=== PATIENT | female | born 1965 | race Caucasian/White ===

== ENCOUNTER 2016-12-11 07:05 | Inpatient (IN) | payer MEDICARE ==
[~2016-12-11] VITALS: Ht 162.6 cm; Wt 138.0 kg
[2016-12-11] VITALS (11 sets, daily range): BP systolic 91–140; BP diastolic 39–86; PULSE 86–109; RESP 15–23; O2SAT 96–100
--- NOTE | 2016-12-11 06:56 | ED.REPORT ---
HPI-General Illness Date of Service Dec 11, 2016 ED Provider: The patient is a 61 year old female with history of diabetes mellitus, COPD, hypertension, high cholesterol, GERD, chronic back pain, and fibromyalgia, who was brought to the emergency department by EMS for decreased LOC. Medics were originally called for generalized weakness and falls. When they arrived they found the patient on the floor. Initially they were unable to get a blood pressure or radial pulse but she was responsive to painful stimuli. Once they were able to get her to lay flat and move her onto the stretcher they were able to get blood pressures that were in the 70s and 80s systolic. En route to the ED the patient's pressure improved with IVF and she was more responsive. The patient has had diarrhea over the last 2 weeks with increasing weakness. Her sugars have been elevated over the last 2 days. This morning she felt more weak and had 2-3 falls at home. She did not hit her head. She does report twisting her left ankle during one of the falls. She denies vomiting, bloody stools, abdominal pain, dysuria, fever, chills, cough or runny nose. Nursing Notes Stated Complaint: DECREASE LOC Nursing Notes Reviewed: Yes Allergies: Coded Allergies: metformin (Verified Allergy, Mild, 12/11/16) morphine (Verified Allergy, Mild, 12/11/16) Sulfa (Sulfonamide Antibiotics) (Unverified Allergy, Unknown, 12/11/16) Uncoded Allergies: SULFA (Allergy, Mild, 12/11/16) Scheduled Cholecalciferol (Vitamin D3) (Vitamin D3) 1,000 Unit Tab.chew 1,000 UNIT PO DAILY Citalopram (Citalopram) 20 Mg Tablet 60 MG PO DAILY Gabapentin (Gabapentin) 800 Mg Tablet 800 MG PO TID Levothyroxine (Levothyroxine) 25 Mcg Tablet 25 MCG PO DAILY Lisinopril (Lisinopril) 30 Mg Tablet 30 MG PO DAILY Vanduser Carbonate (Vanduser Carbonate) 300 Mg Tablet.er 300 MG PO MORNING Vanduser Carbonate (Vanduser Carbonate) 300 Mg Tablet.er 600 MG PO Evening Melatonin (Melatonin) 5 Mg Tab.ir.er 5 MG PO HS Meloxicam (Meloxicam) 15 Mg Tablet 15 MG PO DAILY Mirtazapine (Mirtazapine) 15 Mg Tablet 15 MG PO HS Multivitamin (Multivitamins) 1 Each Capsule 1 EACH PO DAILY Omeprazole (Omeprazole) 40 Mg Capsule.dr 40 MG PO BID Potassium Gluconate (Potassium) 99 Mg Tablet 99 MG PO DAILY Prazosin (Prazosin) 1 Mg Capsule 1 MG PO HS Rosuvastatin Calcium (Rosuvastatin Calcium) 20 Mg Tablet 20 MG PO DAILY Trazodone (Trazodone) 50 Mg Tablet 50 MG PO HS When not taking Mirtazapine Scheduled PRN Methocarbamol (Methocarbamol) 750 Mg Tablet 750 MG PO BID PRN PRN For Spasm General Time Seen by MD: 07:07 Chief Complaint Other (Decreased LOC) Hx Obtained From: Patient, Spouse, EMS Arrived By: Ambulance Sudden in Onset?: Yes Onset Occurred: 1 - 4 hours ago Symptom Duration: Since onset Location: : Ankle left Quality: Painful Severity: Current: Mild Severity: Maximum: Mild Recent Healthcare: No recent hospitalization Similar Sx Previous: No Past Medical History Past Medical History Fibromyalgia Chronic back pain Hypothyroidism High cholesterol Hypertension GERD Bipolar Depression Reports: COPD, Diabetes mellitus Past Surgical History Reports: Cholecystectomy Family History Noncontributory Smoking History Never Smoker Social History Alcohol Use: Denies alcohol use Drug Use: Denies drug use Other Social History: Good social support, , Local resident Ambulatory Status Independent Review of Systems Full Review of Systems Constitutional: Reports: Weakness - generalized, Denies: Chills, Fever Ears / Nose / Throat: Denies: Nasal congestion Respiratory: Denies: Non-productive cough GI: Reports: Diarrhea, Denies: Abdominal pain, Bloody/tarry stool, Hematochezia, Vomiting Neurologic: Reports: Change LOC, Weakness Complete sys rev & neg: except as marked. Physical Exam Vital Signs Vital Signs Date Time Temp Pulse Resp B/P Pulse Ox O2 Delivery O2 Flow Rate FiO2 12/11/16 08:34 99 15 91/44 97 Nasal Cannula 2 12/11/16 08:12 97 17 97/49 98 Room Air 12/11/16 07:58 101 21 92/39 100 12/11/16 07:34 107 23 91/43 100 12/11/16 07:26 109 15 104/50 100 Room Air 12/11/16 07:10 36.7 103 17 101/41 100 Room Air Initial VS: Reviewed, Vital signs abnormal Head / Eyes: Atraumatic, Normocephalic, PERRL ENT: Mucous membranes moist, Conjunctiva normal, No scleral icterus Neck: Supple, Non-tender, Full range of motion Extremities: Vascular intact, Neuro intact Skin: Warm, Dry, No cyanosis Neurologic: Alert, Oriented, Nonfocal Psychiatric: Mood/affect normal, Behavior normal, Normal thought content General/Constitutional: Awake, Alert Appearance / Presentation: Positive: Obese, morbidly Disheveled, malodorous Respiratory / Chest: Atraumatic, Breath sounds NL, Breath sounds = bilat, No respiratory distress, No rales, No rhonchi, No wheezing Cardiovascular: Regular rhythm, Heart sounds NL, No gallop, No murmurs, No rubs Heart Rate / Rhythm: Positive: Tachycardia Abdomen: Soft, Non-tender, No guarding, No rebound, BS normoactive, No distention, No hernia, No palpable mass, No pulsatile mass Obese but no focal tenderness Lower Extremity / Pelvis / MS: Neurologic intact, Vascular intact, No edema Ankle / Foot: Neurologic intact, Vascular intact Swelling to the left lateral malleolus. Interpretation & Diagnostics Lab Results Interpretation Result Diagram: 12/11/16 0720 12/11/16 0720 Test 12/11/16 07:10 12/11/16 07:20 12/11/16 08:25 Vanduser Level 1.3mEq/L (0.5-1.5) White Blood Count 20.0th/mm3 (3.8-10.1) Red Blood Count 4.50mil/mm3 (3.90-5.20) Hemoglobin 12.9g/dL (12.0-15.6) Hematocrit 38.3% (35.0-46.0) Mean Corpuscular Volume 85.1fL (81-100) Mean Corpuscular Hemoglobin 28.7pg (27.0-35.0) Mean Corpuscular Hemoglobin Concent 33.7% (32.0-37.0) Red Cell Distribution Width 12.5% (12.3-15.4) Platelet Count 452bil/L (150-400) Neutrophils (%) (Auto) 61.5% (40-74) Lymphocytes (%) (Auto) 27.3% (14-46) Monocytes (%) (Auto) 7.6% (4-12) Eosinophils (%) (Auto) 2.9% (0-5) Basophils (%) (Auto) 0.3% (0-3) Sodium Level 134mEq/L (134-144) Potassium Level 3.3mEq/L (3.5-5.2) Chloride Level 94mEq/L (97-108) Carbon Dioxide Level 21mmol/L (18-29) Blood Urea Nitrogen 20mg/dL (6-24) Creatinine 1.53mg/dL (0.57-1.00) Estimat Glomerular Filtration Rate 50mL/min (>59) Glucose Level 298mg/dL (60-99) Calcium Level 9.5mg/dL (8.5-10.1) Magnesium Level 2.1mg/dL (1.6-2.6) Total Bilirubin 0.2mg/dL (0.0-1.2) Aspartate Amino Transf (AST/SGOT) 32U/L (0-50) Alanine Aminotransferase (ALT/SGPT) 30U/L (0-32) Alkaline Phosphatase 90U/L (25-165) Troponin T < 0.010ug/L (0.0-0.011) Total Protein 7.4g/dL (6.4-8.4) Albumin 3.9g/dL (3.4-5.0) Procalcitonin 0.18ng/mL (0.00-0.08) Ketones Negative (Negative) Urine Color Straw (YELLOW) Urine Appearance Clear (CLEAR,HAZY) Urine pH 5.5 (5.0-8.0) Urine Specific Moodus 1.010 (1.003-1.035) Urine Protein Negativemg/dL (NEG,TRACE) Urine Glucose (UA) >1000mg/dL (NEGATIVE) Urine Ketones Negativemg/dL (NEGATIVE) Urine Occult Blood Moderate (NEGATIVE) Urine Nitrite Negative (NEGATIVE) Urine Bilirubin Negative (NEGATIVE) Urine Urobilinogen Normalmg/dL (NORMAL) Urine Leukocyte Esterase Negative (NEGATIVE) Urine RBC 0-2/hpf (0-2) Urine WBC 0-5/hpf (0-5) Urine Epithelial Cells None/hpf (NONE-MOD) Urine Crystals None seen (NONE SEEN) Urine Bacteria None/hpf (NONE-FEW) Urine Hyaline Casts None/lpf (NONE) Urine Granular Casts None seen (NONE SEEN) Urine Waxy Casts None seen (NONE SEEN) Urine Red Blood Cell Casts None seen (NONE SEEN) Urine White Blood Cell Casts None seen (NONE SEEN) Urine Mucus None seen (None Seen) Urine Trichomonas None seen (NONE SEEN) Urine Yeast None (NONE SEEN) Urinalysis Comment None Urine Culture Reflexed Not indicated ECG Interpretation ECG Interpretation: Sinus tachycardia Prolonged QT Time: 07:57 Interpreted by: ED physician X-Ray Chest Interpretation Chest Xray Interpretation: IMPRESSION: No acute cardiopulmonary disease. Dictated by: Terry FLORES Interpreted: Renee Mcclellan MD on 12/11/2016 at 8:58 Interpretation / Wet Read by: Interpret - Radiologist X-Ray Interpretation Xray Interpretation: L ankle IMPRESSION: Multiple bony fragments adjacent to the tip of the medial and lateral malleolus suspicious for avulsion fracture fragments and there is asymmetry of the ankle mortise. If indicated MRI or CT could be performed for further assessment. Dictated by: Terry FLORES Interpreted: Renee Mcclellan MD on 12/11/2016 at 8:58 X-Ray Ordered: Ankle left Interpretation / Wet Read by: Interpret - Radiologist Procedures Central Line Placement Time: 10:29 Procedure Performed by: ED physician Consent / Setup / Site Prep: Informed consent provided, Consent from patient , Time-out performed, Oxygen administered, Pulse oximeter applied, engine monitor applied, Hand hygiene observed, Standard surgical scrub, Max barrier precaution, Sterile drapes applied, Position Trendelenburg Skin Preparation Agent: Hibiclens - Chlorhexidine Local Anesthesia: Lidocaine 1% Side / Location / Ultrasound: Internal jugular right, Ultrasound assisted Catheter / Lumen / Technique: Triple lumen, Good blood return, Secured w catheter device Post-Procedure / Complications: Antibiotic oint applied, Dressing placed, CXR neg for pneumothorax, Condition improved, Tolerated procedure well, Patient stable, Not stable post-procedure Re-Eval/Medical Decision Med Decision/Clinical Course Persistent hypotension despite aggressive IV fluid bolus, potential source of infection is the diarrhea, the patient is not having significant pain outside of her left ankle which seems to be a high-grade sprain. Central venous catheter was placed due to persistent hypotension. Patient is initiated on vancomycin, Zosyn, norepinephrine also initiated in the ER. Patient will be admitted. Bolused 4.5 L IVF Source of Hx: Old records, EMS, Family Time of Eval: 07:45 Re-Evaluation/Progress Note: Rechecked the patient. Time of Eval: 08:06 Re-Evaluation/Progress Note: Rechecked the patient. Discussed plan for admission. All questions were addressed. Consultation : Referral / Consult Name: Jules Reina MD Consulted With: Hospitalist Requested Call at: 09:16 Call Returned at: 09:28 Welder Fitter Arc: Will see patient, Agrees with eval, Agrees with plan, Accepts admit Counseled Regarding: Diagnosis, Lab results, Need for admission Discharge & Departure Primary Impression: Sepsis Sepsis type: sepsis due to unspecified organism Qualified Code: A41.9 - Sepsis, unspecified organism Additional Impressions: Diarrhea Diarrhea type: unspecified type Qualified Code: R19.7 - Diarrhea, unspecified Left ankle sprain Encounter type: initial encounter Involved ligament of ankle: unspecified ligament Qualified Code: S93.402A - Sprain of unspecified ligament of left ankle, initial encounter Disposition: ADMITTED TO HOSPITAL Discharge Condition All VS Reviewed: Yes Condition: Stable Crit Care Except Billable Proc Time Spent: 75-104 minutes Services Performed: Patient management by me, Time spent at bedside, Reviewing test results Critical Care Notes: SEE MDM Scribe Attestation Portions of this note were transcribed by Shahnaz Pereira. I, Dr. Pantoja personally performed the history, physical exam and medical decision-making; I reviewed and confirmed the accuracy of the information in the transcribed note. Signed by: Brittney Chen, 12/11/2016 at 1100. Rigoberto Pantoja DO Dec 11, 2016 06:56 Shahnaz Pereira Dec 11, 2016 06:59
[~2016-12-11 07:05] MED LIST: ALBU8.5H2 INHALATION; ATOR80TA PO; BECL8.7A6 IH; CITA20TA11 PO; DIPH50C PO; GABA800T2 PO; GLIM2TAB2 PO; INSU100C8 SUBQ; INSU100V7 SUBQ; LEVO25TA5 PO; LISI30TA5 PO; LURA40TA3 PO; MELA1TAB21 PO; MELO-253 PO; METH750T3 PO; MIRT15TA6 PO; MISO200T4 PO; NYST1POW23 MC; OMEP40CA36 PO; RANI150C4 PO
[2016-12-11] MEDS ORDERED: 0.9% Sodium Chloride 1,000 ML IV ONE ×3 (07:15→08:05)
[2016-12-11 07:25] LABS: BASOPHILS % (AUTO) 0.3 % (0-3); EOSINOPHILS % (AUTO) 2.9 % (0-5); MONOCYTES % (AUTO) 7.6 % (4-12); Mean Corpuscular Hemoglobin 28.7 pg (27.0-35.0); Mean Corpuscular Volume 85.1 fL (81-100); NEUTROPHILS % (AUTO) 61.5 % (40-74); Platelet Count 452 bil/L (150-400)
[2016-12-11 07:59] LABS: TROPONIN T < 0.010 ug/L (0.0-0.011)
[2016-12-11 08:04] LABS: Magnesium 2.1 mg/dL (1.6-2.6)
[2016-12-11] MEDS: 0.9% Sodium Chloride 1,000 ML IV SCH ×5 (08:29→19:20)
[2016-12-11] MEDS ORDERED: Vancomycin Dose per Pharmacist XX ONE (08:30)
[2016-12-11] MEDS ORDERED: Piperacillin-Tazo 3.375 Gm Inj 3.375 GM in Dextrose 5% Minibag Plus 50 ML IV ONE (08:55)
[2016-12-11 08:57] LABS: APPEARANCE,URINE CLEAR (CLEAR,HAZY); COLOR,URINE STRAW (YELLOW); PH,URINE 5.5 (5.0-8.0)
[2016-12-11 08:58] LABS: OCCULT BLOOD,URINE MODERATE (NEGATIVE); UROBILINOGEN,URINE NORMAL (NORMAL)
--- NOTE | 2016-12-11 08:59 | DRSVH ---
PROCEDURE: X-RAY CHEST ONE VIEW, PORTABLE ([id number]) INDICATIONS: hypotension, TECHNIQUE: One view of the chest was acquired. COMPARISON: None. FINDINGS: Surgical changes and devices: None. Lungs and pleura: No pleural effusions or pneumothorax. Lungs are clear. Lung volumes are low. Mediastinum: Mediastinal contours appear normal. Heart size is normal. Bones and chest wall: No suspicious bony lesions. Overlying soft tissues appear unremarkable. IMPRESSION: No acute cardiopulmonary disease. Dictated by: Terry Dominguez [facility] Interpreted: Renee Mcclellan MD on 12/11/2016 at 8:58 Transcribed by: ARUN on 12/11/2016 at 8:58 Approved by: Renee Mcclellan MD, PhD on 12/11/2016 at 9:46
--- NOTE | 2016-12-11 09:01 | DRSVH ---
PROCEDURE: X-RAY LEFT ANKLE, MINIMUM THREE VIEWS ([id number]) INDICATIONS: ankle pain post fall TECHNIQUE: 3 views of the ankle were acquired. COMPARISON: None. FINDINGS: Bones: Multiple bony fragments are seen adjacent to both the tip of the medial lateral malleolus and there is asymmetry of ankle mortise. Prominent calcaneal spurring noted. Soft tissues: No tibiotalar joint effusion. Achilles tendon appears normal. IMPRESSION: Multiple bony fragments adjacent to the tip of the medial and lateral malleolus suspiciou s for avulsion fracture fragments and there is asymmetry of the ankle mortise. If indicated MRI or C T could be performed for further assessment. Dictated by: Terry Dominguez [facility] Interpreted: Renee Mcclellan MD on 12/11/2016 at 8:58 Transcribed by: ARUN on 12/11/2016 at 9:00 Approved by: Renee Mcclellan MD, PhD on 12/11/2016 at 9:46
[2016-12-11] MEDS ORDERED: Vancomycin Inj 2,000 MG in 0.9% Sodium Chloride 500 ML IV ONE (09:05)
[2016-12-11] MEDS ORDERED: Sodium Chloride LOK Flush 10 mL Syringe IVFLUSH PRN ×4 (09:15→11:30)
[2016-12-11] MEDS ORDERED: Alum-Mag Hydrox-Simeth 30 mL Suspension PO PRN (09:30)
[2016-12-11] MEDS ORDERED: Ondansetron 2 mg/mL 2 mL Inj IVPUSH PRN (09:30)
[2016-12-11] MEDS ORDERED: LEVO25TA5 PO (09:41)
[2016-12-11] MEDS ORDERED: ROSU20TA27 PO (09:41)
[2016-12-11] MEDS ORDERED: POTA99TA21 PO (09:41)
[2016-12-11] MEDS ORDERED: TRAZ-115 PO (09:41)
[2016-12-11] MEDS ORDERED: PRAZ1CAP2 PO (09:41)
[2016-12-11] MEDS ORDERED: OMEP40CA36 PO (09:41)
[2016-12-11] MEDS ORDERED: CHOL10008 PO (09:41)
[2016-12-11] MEDS ORDERED: METH750T3 PO (09:41)
[2016-12-11] MEDS ORDERED: CITA20TA11 PO (09:41)
[2016-12-11] MEDS ORDERED: MELA5TAB21 PO (09:41)
[2016-12-11] MEDS ORDERED: MIRT15TA6 PO (09:41)
[2016-12-11] MEDS ORDERED: GABA800T2 PO (09:41)
[2016-12-11] MEDS ORDERED: MELO-253 PO (09:41)
[2016-12-11] MEDS ORDERED: LITH300T PO ×2 (09:41)
[2016-12-11] MEDS ORDERED: LISI30TA5 PO (09:41)
[2016-12-11] MEDS ORDERED: MULT1CAP33 PO (09:44)
[2016-12-11] MEDS: Norepineph 8,000 mCg/250 mL NS 8,000 MCG in IV Premix 1 EACH IV SCH (09:58)
[2016-12-11] MEDS ORDERED: KCl 40 mEq/100 mL (CENTRAL) 40 MEQ in IV Premix 1 EACH IV ONE (11:15)
--- NOTE | 2016-12-11 11:53 | NUR ---
Pt has CPAP at home. Family is trying to get someone to bring it. Will need to borrow a hose as hers is missing.
--- NOTE | 2016-12-11 12:21 | DRSVH ---
PROCEDURE: X-RAY CHEST ONE VIEW, PORTABLE ([id number]) INDICATIONS: central line placement TECHNIQUE: One view of the chest was acquired. COMPARISON: [facility], CR, XR CHEST 1VW (PORTABLE), 12/11/2016, 7:16. FINDINGS: Surgical changes and devices: There is a right IJ central line projecting to the care of SVC. Lungs and pleura: No pleural effusions or pneumothorax. Lungs are clear. Mediastinum: Mediastinal contours appear normal. Heart size is normal. Bones and chest wall: No suspicious bony lesions. Overlying soft tissues appear unremarkable. IMPRESSION: Right IJ central line tip is in the area of the SVC. Dictated by: Arabella Boucher M.D. on 12/11/2016 at 12:18 Approved by: Arabella Boucher M.D. on 12/11/2016 at 12:19
[2016-12-11] MEDS ORDERED: Glucose 40% Oral Gel 15 Gm Tube PO PRN (12:35)
--- NOTE | 2016-12-11 12:44 | PCM.CHPMED ---
Subjective Date of Service: Dec 11, 2016 Provider requesting consult: Jules Reina MD Primary Physician: Admitting Physician: Jules Reina MD Primary Care Physician: Jackeline Rayo Attending Physician: Jules Reina MD Admit Status: From the Emergency Department Chief Complaint: Chief Complaint: Left ankle pain History of Present Illness: The patient is a 61 year old female with history of diabetes mellitus insulin dependant, gastroesophageal reflux disease with a history of esophageal erosions , chronic back pain, and fibromyalgia, who was brought to the emergency department by EMS for a fall with left ankle pain and decreased level of consciousness. The patient reportedly fell at home and injured her left ankle. The patient's called EMS where the patient was found to be hypotensive with decreased level of consciousness. Reports by EMS that the patient was found down on the ground only responsive to painful stimuli with a blood pressure in the 70s to 80s systolic. In route to the emergency department the patient's blood pressure was stabilized with intravenous fluids and she became significantly more responsive. The patient reports that beginning yesterday the patient began to notice symptoms of lightheadedness as well as chills and generalized weakness. The patient states that she went home immediately without difficulty ambulating at the time and took her blood glucose measurement which was too high for the glucometer to read. The patient at that time took her regular dose of Lantus. The patient states that for the last 2 weeks she has had chronic diarrhea. The patient denies melena or hematochezia, dark or tarry stools, mary colored stools or any recent use of antibiotics. For the last month the patient states that she has been struggling to control her blood sugars. The patient states that she takes a sliding scale of Novolin with meals as well as 60 units of Lantus twice daily. The patient at this time denies any sore throat and runny nose or cough, shortness of breath, chest pain , abdominal pain, dysuria, or other vaginal discharge. Review of Systems: A comprehensive review of systems was obtained and all are negative except for what is included in the HPI. PMH Past Medical History Fibromyalgia Chronic back pain Diabetes Mellitus type 2 Hypothyroidism High cholesterol Hypertension GERD with esophageal erosions Bipolar Depression with a history of suicidal ideation Bedside Blood Glucose: 270 Surgical History Cholecystectomy inguinal hernia repair x2 L4-L5 lumbar fusion Home Medications Cholecalciferol 1,000 UNIT PO DAILY Citalopram 60 MG PO DAILY Gabapentin 800 MG PO TID Levothyroxine 25 MCG PO DAILY Lisinopril 30 MG PO DAILY [place] Carbonate 300 MG PO MORNING [place] Carbonate 600 MG PO Evening Melatonin 5 MG PO HS Meloxicam 15 MG PO DAILY Mirtazapine 15 MG PO HS Multivitamin 1 EACH PO DAILY Omeprazole 40 MG PO BID Potassium Gluconate 99 MG PO DAILY Prazosin 1 MG PO HS Rosuvastatin [id number] MG PO DAILY [id number] MG PO HS When not taking Mirtazapine Methocarbamol 750 MG PO BID PRN PRN For Spasm Allergies: Coded Allergies: metformin (Verified Allergy, Mild, 12/11/16) morphine (Verified Allergy, Mild, 12/11/16) Sulfa (Sulfonamide Antibiotics) (Unverified Allergy, Unknown, 12/11/16) Uncoded Allergies: SULFA (Allergy, Mild, 12/11/16) Family History Family History Mother of breast cancer in her 40s Maternal Aunt had epilepsy Maternal Grandmother had epilepsy Maternal Grandfather had a heart attack in his 80s Father had COPD/Emphysema Social History Occupation: retired [employer] workerHx Alcohol Use: No (describes heavy ETOH in the but quit 20ya)Hx Substance Use: NoHx Tobacco Use: Yes (quit in 2012) Smoking Status: Never Smoker Years of [place] Living Arrangement: with Family (in [facility]) Exam Vital Signs Vital Sign - Last Date Time Temp Pulse Resp B/P Pulse Ox O2 Delivery O2 Flow Rate FiO2 12/11/16 11:25 36.8 101 17 126/54 98 Room Air 12/11/16 08:34 2 Additional Information: General: Morbidly obese middle age female appearing older than stated age, in no acute distress, appropriately interactive Eyes: PERRLA, EOMI, anicteric sclera, noninjected conjunctiva HENT: Normocephalic, atraumatic. Moist mucous membranes without central cyanosis , and oropharynx clear without cobblestoning mucosa. Neck: Supple with full range of motion. No jugular venous distension. No bruits. No lymphadenopathy or thyromegaly. Cardiovascular: Regular rate and rhythm with no murmurs, rubs, or gallops appreciated Pulmonary: Clear to auscultation bilaterally without notable wheezing rales and rhonchi, Normal respiratory effort with no use of accessory muscles. Abdomen: Bowel tones present. Soft, nontender, nondistended. No hepatosplenomegaly or masses appreciated. Extremities: No clubbing, cyanosis, edema, or lymphadenopathy appreciated. Skin: warm and dry, Normal turgor, and texture. skin fold checked without signs of infection Neurological: nonfocal neurologic exam, able to move all extremities spontaneously Psychiatric: Normal mood and affect. Alert and oriented to person, place, and time. Lab and Diagnostics Result Diagram: 12/11/16 0720 12/11/16 0720 X-Rays, CTs and MRIs X-RAY LEFT ANKLE, MINIMUM THREE VIEWS ([id number]) IMPRESSION: Multiple bony fragments adjacent to the tip of the medial and lateral malleolus suspicious for avulsion fracture fragments and there is asymmetry of the ankle mortise. If indicated MRI or CT could be performed for further assessment. Dictated by: Terry Dominguez [facility] Interpreted: Renee Mcclellan MD on 12/11/2016 at 8:58 Transcribed by: ARUN on 12/11/2016 at 9:00 Approved by: Renee Mcclellan MD, PhD on 12/11/2016 at 9:46 X-RAY CHEST ONE VIEW, PORTABLE IMPRESSION: Right IJ central line tip is in the area of the SVC. Dictated by: Arabella Boucher M.D. on 12/11/2016 at 12:18 Approved by: Arabella Boucher M.D. on 12/11/2016 at 12:19 Assessment & Plan Assessment Patient is a 51yoF with past medical history remarkable for diabetes mellitus type 2 insulin dependant, GERD with esophageal erosions who presents with left ankle pain after a fall. # Acute Hypotension secondary to Dehydration - Patient was SIRS positive with leukocytosis 20 and tachycardia of 103 at admission with lactic acid of 3.5 with an EMS reports that the patient had systolic blood pressures in the 70-80mmHg in the field, patient was bolused 4.5L of NS IV fluids and started on a norepinephrine drip with NS at 300ml/hr as well as Vancomycin and Zosyn in the ED. Patient does not currently have a defined source of infection, the patient denies symptoms of URI/PNA, no abdominal pain with clear stool biofire PCR, UA is clear - Unlikely Severe Sepsis with Septic Shock as the leukocytosis may be able to be explained by an acute phase reactant to the broken left ankle seen on xray imaging and the hypotension is explained by dehydration secondary to poorly controlled diabetes and chronic diarrhea - Patient is currently 7L positive after significant IV fluid resuscitation by EMS and emergency department - Differential diagnosis for hypotension and decreased level of consciousness also includes myxedema coma secondary to hypothyroidism, diabetic ketoacidosis, and adrenal insufficiency - TSH of 13.37 with free T4 ordered - Random serum cortisone ordered and pending - Serum ketones are negative, hemoglobin A1c pending, anion gap metabolic acidosis is likely explained due to lactic acidosis - [place] is normal at 1.3 # Acute kidney injury secondary to dehydration - Review of General records from PCP Lory Rayo shows creatinines in the 0.7- 0.8 range with the most recent at 1.1 - Current creatinine is approximately 1.5 given the severe hypotension likely due to prerenal azotemia and dehydration described above - Significant fluid resuscitation given in ED and by EMS 7 L on admission - NS at 80 ML's per hour given the prior significant fluid resuscitation - Routine BMP monitoring # Acute diarrhea - Described as approximately 2 weeks - Patient denies recent history of antibiotic use - Stool bile fire PCR negative for infection - Monitor # Acute High anion gap metabolic acidosis - Secondary to lactic acidosis and chronic renal insufficiency with initial lactic acid of 3.5 and trended every 2 hours until normal currently at 2.2 - Lactic acidosis is likely secondary to hypotension with poor tissue perfusion - Chronic renal insufficiency is likely due to prolonged diabetes mellitus described by the patient's family in the room # Acute Leukocytosis of unknown etiology - able to be explained by hemoconcentration due to severe dehydration as well as an acute stress phase reactant to the broken left ankle seen on xray - Monitor # Acute Thrombocytosis - Likely due to acuteness for this reactive hemoconcentration described above - Monitor # Chronic Diabetes mellitus type II insulin-dependent - Continue home Lantus and Novolin therapy - Lantus 60 units twice a day - Novolin converted to lispro at a high dose correction scale - Serum ketones are negative hemoglobin A1c pending # Chronic bipolar disorder - Continue home lithium - Serum lithium currently 1.3 # Chronic hypothyroidism - TSH of 13.37 with free T4 ordered - Continue home levothyroxine until free T4 returns and then consider increasing dose # Chronic gastroesophageal reflux disease - Patient has a history of esophageal erosions and on chronic PPI therapy - Convert omeprazole to pantoprazole 40 mg twice a day # Acute left ankle fracture - Noted on imaging - Orthopedic consult DVT prophylaxis: Heparin 5000 units 3 times a day Problems: Pain Evaluation: Adequate Pain Control GI Prophylaxis: Proton Pump Inhibitor Resuscitation Status: CPR: Attempt Resuscitation Attending Statement I have seen and examined this patient with the resident physician. Vital signs , labs, imaging have been reviewed. I agree with the assessment and plan above. Please refer to my separately dictated progress note for any modifications to above. Helga Camarillo M.D. Pulmonary and Critical Care medicine Pager [phone] Willis Baxter DO Dec 11, 2016 12:44 Helga Camarillo MD Dec 12, 2016 08:20
[2016-12-11] MEDS ORDERED: Dextrose 10% 250 ML IV PRN (13:05)
--- NOTE | 2016-12-11 13:14 | ABG ---
DateTimeAnalyzed 13:07:05 -_ pH ____7.337 - pCO2 ___39.1__ -mmHg pO2 ___41.0__ -mmHg HCO3- ___20.9__ -mmol/L 22.0 26.0 ABE ___-4.5__ -mmol/L tHb ___11.6__ -g/dL O2Hb ___72.4__ -% COHb ____1.3__ -% 1.5 MetHb ____0.0__ -% sO2 ___73.4__ -% FIO2 ___21.0__ -% Drawn By as - Date/Time Notified____ 13:14:00 -_ Notified By ams - Notified Whom tika willson, rn -____ K+ ____4.1__ -mmol/L tO2 ___11.8__ -Vol% Jules test N/A -
[2016-12-11] MEDS: Insulin LISPRO 300 Unit/3 mL Inj SUBQ SCH ×2 (13:16→17:10)
--- NOTE | 2016-12-11 14:53 | NUR ---
P: Hypotension I: Pt admitted and oriented to room, call light. Blood sugar 357 and 12 units Lispro given SQ. Pt taking fluid and diet without difficulty. NSR/ST. Sats stable on room air. Family brought in pt's home CPAP machine to use tonight. IVF decreased to 80cc/hr. RIJ TLC patent sometimes positional with neck movement. Norepinephrine 0.05mcqs/kg/min. Turned it off and BP dropped so restarted. Left ankle painful and swollen from previous fall. Foot elevated on pillows and ice pack on ankle. Afebrile. Lactic acid re checked 2.2. potassium 3.3 and k+ rider infusing. Small incontinent BM. Nasal swab MRSA and PCR sent.Pt napping on an off. at bedside. Frequent rounding. Nix patent and draining light yellow urine. E: Stable S: Alert and oriented. Uses call light appropriately. Frequent rounding.
[2016-12-11] MEDS ORDERED: Lactated Ringer's 500 ML IV ONE (15:15)
--- NOTE | 2016-12-11 15:25 | PCM.HPMED ---
Subjective Date of Service Dec 11, 2016 Primary Provider: Admitting Physician: Jules Reina MD Primary Care Physician: Jackeline Rayo Attending Physician: Jules Reina MD Admit Status: From the Emergency Department, Full Admit, Critical Care Chief Complaint: Generalized weakness and confusion in context of diarrhea for 2 weeks and hyperglycemia for 2 days. History of Present Illness: This is a pleasant 51-year-old female who lives in [place] with her . She has a history of obesity and diabetes mellitus 2. She has been ill with diarrhea for about 2 weeks. She has had minimal nausea but some anorexia. The diarrhea has been intermittent low volume and free of blood or mucus. She last several days has had hyperglycemia. They have had great difficulty with fine insulin and strips because of insurance and financial problems. She does not take insulin on a regular basis. Her glucometers bed measuring high for the past several days sometimes over 600 range. She had become progressively weaker. Today she fell and was unable to get up because of weakness. The [facility] was called and found her to have a blood pressure that was not palpable but she was able to speak. Peripheral IV was placed and she was given fluids. The patient was then transported to the emergency department. There she received multiple fluid boluses and ultimately had a persistent hypotension. A right internal jugular central line was placed. The patient had a benign electrode cardiogram. She was treated empirically with antibiotics for possible sepsis and started on norepinephrine for vasopressor. The patient denies recent fevers or chills. No nausea. She denies any rhinorrhea or cough or sore throat. No myalgias or arthralgias above and beyond her baseline symptoms. She denies any burning with urination or hematuria but does have polyuria. She also denies any abdominal pain. She did injure her left ankle former falls and this was evaluated in the emergency department. She had some tenderness but minimal swelling. Radiograph is equivocal for possible avulsion of the distal fibula and tibia. She was placed in her splint. She denies other injuries or focal pain. She does have chronic lower back pain and fibromyalgia. Review of Systems: All else reviewed and otherwise negative except as noted in history of present illness Allergies Coded Allergies: metformin (Verified Allergy, Mild, 12/11/16) morphine (Verified Allergy, Mild, 12/11/16) Sulfa (Sulfonamide Antibiotics) (Unverified Allergy, Unknown, 12/11/16) Uncoded Allergies: SULFA (Allergy, Mild, 12/11/16) Home Medications Cholecalciferol (Vitamin D3) (Vitamin D3) 1,000 Unit Tab.chew 1,000 UNIT PO DAILY Citalopram (Citalopram) 20 Mg Tablet 60 MG PO DAILY Gabapentin (Gabapentin) 800 Mg Tablet 800 MG PO TID Levothyroxine (Levothyroxine) 25 Mcg Tablet 25 MCG PO DAILY Lisinopril (Lisinopril) 30 Mg Tablet 30 MG PO DAILY [place] Carbonate ([place] Carbonate) 300 Mg Tablet.er 300 MG PO MORNING [place] Carbonate ([place] Carbonate) 300 Mg Tablet.er 600 MG PO Evening Melatonin (Melatonin) 5 Mg Tab.ir.er 5 MG PO HS Meloxicam (Meloxicam) 15 Mg Tablet 15 MG PO DAILY Mirtazapine (Mirtazapine) 15 Mg Tablet 15 MG PO HS Multivitamin (Multivitamins) 1 Each Capsule 1 EACH PO DAILY Omeprazole (Omeprazole) 40 Mg Capsule.dr 40 MG PO BID Potassium Gluconate (Potassium) 99 Mg Tablet 99 MG PO DAILY Prazosin (Prazosin) 1 Mg Capsule 1 MG PO HS Rosuvastatin Calcium (Rosuvastatin Calcium) 20 Mg Tablet 20 MG PO DAILY Trazodone (Trazodone) 50 Mg Tablet 50 MG PO HS When not taking Mirtazapine Scheduled PRN Methocarbamol (Methocarbamol) 750 Mg Tablet 750 MG PO BID PRN PRN For Spasm PMH Diabetes mellitus 2 Chronic obstructive pulmonary disease Essential hypertension Gastroesophageal reflux disease Chronic lower back pain Fibromyalgia Morbid obesity Surgical History Cholecystectomy Family History Diabetes mellitus 2 Social History Occupation: retired [employer] worker Hx Alcohol Use: No (describes heavy ETOH in the 1990s but quit 20ya) Hx Substance Use: No Hx Tobacco Use: Yes (quit in 2012) Smoking Status: Never Smoker Years of [place] Living Arrangement: with Family (in [facility]) Exam Vital Signs Vital Sign - Last Date Time Temp Pulse Resp B/P Pulse Ox O2 Delivery O2 Flow Rate FiO2 12/11/16 12:30 36.5 98 22 129/84 100 Room Air 12/11/16 08:34 2 Exam Oriented 3. No distress. Fluent speech. Normal affect. Morbidly obese. Normal skull. Normal nose and ears. Anicteric sclera, symmetric pupils Oropharynx is unremarkable, no facial droop. Neck is supple, normal thyroid. No adenopathy. Lungs are clear, normal effort rate. Heart is regular without murmur gallop or rub. Abdomen soft, nondistended or tender. Extremities are free of pedal edema. Left ankle is somewhat swollen and tender. There is no laxity to AP or varus FORCES. Good radial and pedal pulses. Skin is free of rash, lesions. No petechiae or ecchymosis. Joints are grossly normal. Cranial nerves are grossly normal. Motor strength is normal in all extremities. Normal muscular tone. Lab and Diagnostics Result Diagram: 12/11/1671912/11/16719 Assessment & Plan Hypovolemic shock, by mouth and improves. This patient suffers from hypovolemia secondary to diarrhea and hyperglycemia. We will continue fluid resuscitation and wean norepinephrine off as feasible. Diarrhea, POA and stable. We will send his stool PCR. We will continue to observe her clinically to see what her rate volume losses. Diabetes mellitus 2, uncontrolled. POA. This patient has no evidence of DKA although there is no issue with her illness as well as medication noncompliance due to financial constraints. We will fluid resuscitate her and treat her with Lantus and correctional lispro. Hypokalemia, POA. We will replete and follow. Essential hypertension, POA. We will hold home medications until her blood pressure stabilizes with fluid resuscitation. Chronic obstructive pulmonary disease, POA and stable. Usual medications. Fibromyalgia and chronic lower back pain, POA and stable. Follow clinically. Rule out sepsis, POA. The patient has no clear source of infection but was given empiric antibiotics. Blood cultures, 2 are pending and will be followed. We will also add lactic acid and trend as well as a pro-calcitonin. Schizophrenia, POA and stable. Follow clinically usual medications. Full resuscitation. Inpatient status with an estimated length of stay of over 2 nights. Pain Evaluation: Adequate Pain Control GI Prophylaxis: Proton Pump Inhibitor Resuscitation Status: CPR: Attempt Resuscitation Time spent 60 minutes Jules Reina MD Dec 11, 2016 15:24
[2016-12-11] MEDS: Lactated Ringer's 1,000 ML IV SCH ×3 (15:35→22:39)
[2016-12-11] MEDS: Pantoprazole 40 mg ER24 Tablet PO SCH (16:13)
[2016-12-11] MEDS: Heparin 5,000 Unit/mL Inj SUBQ SCH (16:14)
--- NOTE | 2016-12-11 16:15 | CONS ---
[address] [address] CONSULTATION REPORT PATIENT: CLARISSA HERNANDEZ : 1965 MR#: [id number] ADMIT: 12/11/2016 JOB ID: [id number] DATE OF SERVICE: 12/11/2016 PULMONARY CRITICAL CARE CONSULTATION: The patient is a 51-year-old woman seen in consultation at the request of Dr. Miguel for hypotension and shock requiring vasopressors. The patient was seen and evaluated in conjunction with resident physician, Dr. Willis Baxter. Please refer to his separate detailed note for additional information. The following is a brief attending note. HISTORY OF PRESENT ILLNESS: The patient is a 51-year-old woman with morbid obesity, BMI greater than 50 who has been having diarrhea for the last two weeks or more. According to her and her at the bedside, the diarrhea has been pretty much constant. She was having worsening mental status. for which reason EMS was called. The patient was brought into the emergency department because of a fall at home resulting in ankle fracture. They found her to be severely hypotensive in the 70s and she received IV fluids en route to the emergency department. In the emergency department, she received additional IV fluids for a total of 7 L of normal saline. She has a known history of diabetes and her blood sugars were around 300, but no evidence of serum ketones to suggest diabetic ketoacidosis. The patient herself denies any fever, chills, chest pain, cough, wheezing, abdominal pain, nausea, vomiting, etc. She is on low-dose norepinephrine currently at 0.05 mcg although it was a higher dose in the emergency department. This has been weaned down slowly but on turning off, her blood pressure dropped quickly. Past medical history, social history, family history, and review of systems as per Dr. Baxter' separate note. Complete physical examination is also in his note. A brief examination is below. Vital signs reviewed. Afebrile. Pulse 98, respirations 22, BP 129/84, on low-dose norepinephrine. Sats are 100% on room air. General: Morbidly obese woman lying in bed. She is lethargic but opening eyes and answering questions appropriately. Chest: Clear to auscultation anteriorly. Heart: Regular rate, rhythm. Abdomen: Nontender. LABORATORIES: Reviewed and notable for WBC of 20. Chemistry notable for creatinine of 1.5 which appears to be her baseline. Potassium 3.3, chloride of 94, lactate of 3.5, which is down to 2.2. Procalcitonin of 0.18. Cultures pending. Stool PCR negative for bacteria. Chest x-ray reviewed and normal. She has an ankle fracture. Ankle x-ray shows multiple bony fragments adjacent to the tip of the medial and lateral malleoli suspicious for avulsion fracture fragments. Venous blood gas shows pH 7.33, pCO2 of 39, bicarbonate of 20. ASSESSMENT AND RECOMMENDATIONS: 1. Hypovolemic shock. 2. Gastroenteritis with diarrhea. 3. Diabetes type 2 with hyperglycemia. 4. Electrolyte abnormalities including hypokalemia. 5. Morbid obesity. A 51-year-old woman with morbid obesity and type 2 diabetes is presenting with two weeks of near continuous diarrhea most likely resulting in dehydration, with hypovolemic shock. She is improving with volume resuscitation and I would like to repeat a liter of LR and avoid normal saline at this point, because of metabolic acidosis. She is on minimal dose norepinephrine and I am hoping this can be weaned off overnight. We are assessing her for source of sepsis but there appears to be nothing identifiable. Stool PCR is negative. Chest x-ray is clear. LFTs are normal. Lipase is normal. Procalcitonin is negative. At this point, I do not think any further antibiotics are needed but she did receive vancomycin and Zosyn in the emergency department. Cultures are pending. We also have a cortisol level and TSH level pending to look for other etiologies of hypotension. DVT prophylaxis is indicated and has been started. GI prophylaxis is not indicated. Venous blood gas shows no evidence of chronic CO2 retention suggesting no evidence of obesity hypoventilation syndrome. We have also requested an echocardiogram. The patient will remain in the ICU as long as she is on pressors. CRITICAL CARE TIME: 45 minutes. MTDD
[2016-12-11] MEDS: Insulin GLARgine 100 Unit/mL Syringe SUBQ SCH (20:34)
[2016-12-12] VITALS (9 sets, daily range): BP systolic 100–134; BP diastolic 56–84; PULSE 81–98; RESP 16–20; O2SAT 96–98
[2016-12-12] MEDS: Heparin 5,000 Unit/mL Inj SUBQ SCH ×4 (00:12→23:34)
--- NOTE | 2016-12-12 00:31 | NUR ---
P) Cardiac/Respirator Pt. alert and oriented, L foot in foam splint, minimal pain, elevated and ice applied.Pt. on low dose Norepinephrine to maintain BP, cardiac rhythm sinus, lungs with very decreased breath sounds in bases bilat. but could be due to body habitus. Pt. has multiple swollen, red areas on face. I) Trying to wean norepi., meds per 's orders. E) Resting quietly with eyes closed. Addendum: 12/12/16 at 641 by REMIGIO ROSADO RN Error, L foot is not splinted, is elevated and ice packs applied. Addendum: 12/12/16 at 42 by REMIGIO ROSADO RN Norepi off 0030
[2016-12-12 03:32] LABS: Mean Corpuscular Hemoglobin 28.8 pg (27.0-35.0); Mean Corpuscular Volume 87.8 fL (81-100)
[2016-12-12] MEDS: Norepineph 8,000 mCg/250 mL NS 8,000 MCG in IV Premix 1 EACH IV SCH ×2 (04:19→19:57)
[2016-12-12] MEDS: 0.9% Sodium Chloride 1,000 ML IV SCH ×2 (07:50→19:57)
[2016-12-12] MEDS: Pantoprazole 40 mg ER24 Tablet PO SCH ×2 (08:11→17:28)
[2016-12-12] MEDS: Insulin LISPRO 300 Unit/3 mL Inj SUBQ SCH ×5 (08:13→19:56)
[2016-12-12] MEDS: Insulin GLARgine 100 Unit/mL Syringe SUBQ SCH ×2 (08:20→19:57)
--- NOTE | 2016-12-12 09:37 | NUR ---
DIABETES EDUCATION. This patient completed the outpatient Diabetes Education Program in 2012. She has financial constraints that preclude her from affording her insulin on a regular basis. Per discussion during CCU rounds, an inpatient goal is to find the patient a more affordable insulin option prior to discharge. Provided complete diabetes education to patient, handouts for reference. Per her consent, I completed a referral for outpatient education to be faxed to her provider, Jackeline Rayo, for approval. Patient specifically requested [facility] Zamora for insulin management.
--- NOTE | 2016-12-12 11:49 | PROG NOTE ---
[address] [address] PROGRESS NOTE PATIENT: CLARISSA HERNANDEZ : 1965 MR#: [id number] ADMIT: 12/11/2016 JOB ID: [id number] DATE: 12/12/2016 PULMONARY PROGRESS NOTE: The patient is a 51-year-old woman with super morbid obesity, BMI 52, admitted with hypovolemic shock due to diarrhea. INTERVAL HISTORY: The patient was seen and evaluated with resident physician, Dr. Willis Baxter. Please refer to his separate detailed note for additional information. INTERVAL HISTORY: She is much more alert today and denies any specific complaints. Specifically denies abdominal pain, chest pain, shortness of breath, fever or chills. REVIEW OF SYSTEMS: As above. PHYSICAL EXAMINATION: Vital signs reviewed. She is afebrile. BP, off all pressors, 134/66, sats 98% on room air. General: Morbidly obese woman lying in bed, breathing comfortably. In no distress. Chest clear to auscultation. Abdomen soft, nontender. No organomegaly. LABORATORIES: Reviewed. WBC is down to 12.9 from 20. A cortisol level is 8.9, normal. Chemistries are within normal limits. No new growth on cultures. ASSESSMENT AND RECOMMENDATIONS: 1. Hypovolemic shock-resolved. 2. Diarrhea-resolved. 3. Type 2 diabetes. 4. Morbid obesity She is doing much better now, off all pressors, mentating much better. There is some concern about her ability to afford her insulin Lantus for which pharmacy is looking into alternative, suggests NPH. Workup for infection so far has been completely negative and I think we are dealing with shock due to hypovolemia so she is not getting any further antibiotics. She is going to be transferred out of the ICU today. ISHMAEL
--- NOTE | 2016-12-12 11:52 | PCM.PNMED ---
Subjective Date of Service Dec 12, 2016 Subjective Gurmeet Armendariz is a 51 year old obese woman who presented for hypotension secondary to volume depletion. Overnight: No acute events. The patient was titrated off her NE at around midnight. Today. The patient states she is feeling fine but her ankle is still hurting quite a bit with any movement and at rest. Exam Vital Signs Vital Sign - Last Date Time Temp Pulse Resp B/P Pulse Ox O2 Delivery O2 Flow Rate FiO2 12/12/16 09:47 91 12/12/16 08:30 36.7 17 134/66 98 Room Air 12/11/16 08:34 2 Intake and Output 12/11/16 12/11/16 12/12/16 Cumulative From/Thru 15:00 23:00 07:00 12/11/16 07:10 - 12/12/16 06:30 Intake Total 7230 ml 2726 ml 1479 ml 43309 ml Output Total 750 ml 1100 ml 2650 ml 4500 ml Balance 6480 ml 1626 ml -1171 ml 6935 ml Intake Oral 960 ml 400 ml 1360 ml IV Total 7230 ml 1766 ml 1079 ml 70116 ml Output Urine Total 750 ml 1100 ml 2650 ml 4500 ml # Bowel Movements 1 1 Exam Oriented 3. No distress. Fluent speech. Normal affect. Morbidly obese. Normal skull. Normal nose and ears. Anicteric sclera, symmetric pupils Oropharynx is unremarkable, no facial droop. Neck is supple, normal thyroid. No adenopathy. Lungs are clear, normal effort rate. Heart is regular without murmur gallop or rub. Abdomen soft, nondistended or tender. Extremities are free of pedal edema. Left ankle is somewhat swollen and tender. Crepitus on palpation. Good radial and pedal pulses. Skin is free of rash, lesions. No petechiae or ecchymosis. Joints are grossly normal. Cranial nerves are grossly normal. Motor strength is normal in all extremities. Normal muscular tone. IVs and Medications Medications Reviewed: Medications were reviewed in detail Lab and Diagnostics Result Diagram: 12/12/1631412/12/16314 X-Rays, CTs and MRIs X-RAY LEFT ANKLE, MINIMUM THREE VIEWS IMPRESSION: Multiple bony fragments adjacent to the tip of the medial and lateral malleolus suspicious for avulsion fracture fragments and there is asymmetry of the ankle mortise. If indicated MRI or CT could be performed for further assessment. Dictated by: Terry Dominguez A Interpreted: Renee Mcclellan MD on 12/11/2016 at 8:58 Assessment & Plan Gurmeet Armendariz is a 51 year old obese woman who presented for hypotension secondary to volume depletion. Hypovolemic shock, by mouth and improves. This patient suffers from hypovolemia secondary to diarrhea and hyperglycemia. -We will continue fluid resuscitation and wean norepinephrine off as feasible. Diarrhea, POA and stable. Stool PCR negative. -We will continue to observe her clinically to see what her rate volume losses. Left ankle fracture, acute -Consulted Dr. Morales of orthopedics. Recommends MRI and fracture boot. -Dr. Morales agreed to see the patient Diabetes mellitus 2, uncontrolled. POA. -This patient has no evidence of DKA although there is no issue with her illness as well as medication noncompliance due to financial constraints. -We will fluid resuscitate her and treat her with Lantus and correctional lispro. Hypokalemia, POA. -We will replete and follow. Essential hypertension, POA. -We will hold home medications until her blood pressure stabilizes with fluid resuscitation. Chronic obstructive pulmonary disease, POA and stable. -Usual medications. Fibromyalgia and chronic lower back pain, POA and stable. -Follow clinically. Rule out sepsis, POA. -The patient has no clear source of infection but was given empiric antibiotics. -Blood cultures, 2 are pending and will be followed. -We will also add lactic acid and trend as well as a pro-calcitonin. Schizophrenia, POA and stable. -Follow clinically usual medications. Full resuscitation. Dispo: Anticipate patient can be discharged in 1-2 days. GI Prophylaxis: Proton Pump Inhibitor Resuscitation Status: CPR: Attempt Resuscitation Attending Statement Patient was seen and examined with housestaff. Agree with all attached documentation. Adeline Kaufman DO Dec 12, 2016 11:27 Jules Reina MD Dec 12, 2016 12:52
--- NOTE | 2016-12-12 13:41 | DRSVH ---
PROCEDURE: MRI ANKLE LEFT WITHOUT CONTRAST ([id number]) INDICATIONS: ankle fracture TECHNIQUE: Noncontrast sagittal T1 spin echo and T2 fast spin echo with fat saturation, axial proton density fas t spin echo and T2 fast spin echo with fat saturation, coronal T1 spin echo and T2 fast spin echo wit h fat saturation through the ankle/hindfoot. COMPARISON: [facility], CR, XR ANKLE 3VW LT, 12/11/2016, 7:16. FINDINGS: Image quality: Excellent. Bones and joints: No bone marrow contusions or fractures. Prominent plantar and posterior calcaneal spurs are seen. No hindfoot coalitions. No osteochondral injuries of the talar dome. No pathologic joint effusions. 5 mm ossicle adjacent to the medium malleolus, possibly loose body versus fracture fragment (although no discrete donor site is seen).. Medial structures: The posterior tibialis, flexor digitorum longus, and flexor hallucis longus tendo ns are intact. However there is thickening of the distal posterior tibialis tendon, and fluid surroun ding the posterior tibialis tendon suggestive of tenosynovitis. The posterior tibial neurovascular bundle appears normal within the tarsal tunnel, without extrinsi c mass effect. The deep layer (anterior and posterior tibiotalar ligaments) and superficial layer (t ibionavicular, tibiospring, and tibiocalcaneal ligaments) of the deltoid ligament appear normal. The spring ligament components (superomedial calcaneonavicular, medioplantar oblique calcaneonavicular, and inferoplantar longitudinal ligaments) are intact. Lateral structures: The anterior talofibular ligament appears thickened. The calcaneofibular, and po sterior talofibular ligaments appear intact. More superiorly, the anterior and posterior tibiofibula r ligaments appear normal, as is the intermalleolar ligament. The tibiofibular syndesmosis is normal in width at 2 mm or less. The peroneus longus and brevis tendons demonstrate normal location and mo rphology. Although there is minimal surrounding fluid Adjacent bony peroneal tubercle and retrotrochlear prominence are normal in size. The sinus tarsi de monstrates normal fatty signal, without edema, fibrosis, or cyst formation. Visualized sinus tarsi c omponents (cervical ligament, interosseous talocalcaneal ligament, roots of the inferior extensor ret inaculum) appear normal. The calcaneonavicular and calcaneocuboid components of the bifurcate ligame nt appear intact. Anterior structures: The tibialis anterior, extensor hallucis longus, and extensor digitorum longus tendons appear intact. However there is marked surrounding fluid suggestive of tenosynovitis, possibl e low-grade strain Posterior and plantar structures: Achilles tendon is intact. There is low-grade thickening and intra substance signal change in keeping with chronic tendinopathy. Thickening and intrasubstance signal change of the medial band of the plantar fascia in keeping with plantar fasciitis. There is prominent diffuse dorsal midfoot and hindfoot soft tissue swelling IMPRESSION: Prominent dorsal midfoot and hindfoot soft tissue swelling, with fluid surrounding the anterior tendo ns raising the possibility of strain and/or tenosynovitis. Recommend clinical correlation. Possible sprain of the anterior talofibular ligament. Please correlate clinically as this is technica lly age-indeterminate Distal posterior tibialis tendinopathy, and tenosynovitis. Low grade peroneal tenosynovitis. Medial band plantar fasciitis. Mild distal patellar tendinopathy, probably chronic. 5 mm chronic appearing ossicle adjacent to the medial malleolar tip possibly loose body. Recommend cl inical correlation. A previously radiographically visualized small cortical fragment adjacent to the tip of the lateral malleolus is not well-seen on the current examination. No definite marrow edema se en in the tip of the lateral malleolus. Dictated by: Florencio Nolan M.D. on 12/12/2016 at 13:20 Approved by: Florencio Nolan M.D. on 12/12/2016 at 13:40
--- NOTE | 2016-12-12 14:36 | NUR ---
P:Pain I: C/o pain on left ankle. Medicated with Tylenol po with good relief. left ankle up on pillow with ice applied. Room air with sats stable. NSR. BP stable. Taking diet and fluids well. Nix patent and draining light yellow urine. Blood sugars better with SSI given. Status changed to PCU. at bedside and both she and the pt updated on plan of care. E: Stable S: Alert and oriented. Uses call light appropriately. Frequent rounding.
--- NOTE | 2016-12-12 15:27 | NUR ---
Social Work: Initial Assessment D: Per EMR review, pt is a 51 year old female admitted for Sepsis/Diarrhea. Pt is [employer] with no LTC insurance or VA benefits. PCP is BALBINA Muñoz. NOK is Nova Levi, , . Advanced directives info provided to patient. RA Score is high, 4/8. PROCESSOR INSPECTOR met with the pt and at bedside. Sw role and contact info provided. Pt and live in [place], pt uses no DME, is I at baseline and has never had HH or skilled rehab. Pt states that she continues to drive and manages all of her own ADLs. Prior to admission pt fell and injured her ankle. Pt has an ortho consult pending to evaluate needs of pt. HH/SNF Choice list provided and discharge possibilities reviewed with pt and spouse. A: Pt who is I at baseline but may require services at discharge due to ankle injury. P: Evolving; PROCESSOR INSPECTOR to follow pt's clinical care and asses for discharge needs pending ortho and PT recommendations. BEN Dickey
--- NOTE | 2016-12-12 17:20 | DRSVH ---
[facility] [address] [place] [address] Echocardiogram Report Name: CLARISSA HERNANDEZ Study Date: 12/11/2016 Height: 64 in Hospital Exam Location: [facility] Weight: 307 lb Gender: Female BSA: 2.3 m2 : 1965 Age: 51 yrs BP: 129/84 mmHg Reason For Study: Hypotension Ordering Physician: HOSPITALIST [facility] Performed By: Archana Masterson Referring Physician: ULISES CAGE Interpretation Summary The left ventricle is grossly normal size. The ejection fraction is estimated to be 60-65%. The right ventricle grossly appears normal in size with probable normal systolic function. The right ventricular systolic pressure is estimated at 23 mmHg assuming a right atrial pressure of 3 mm Hg. Valvular structure and function are within normal limits. There is no pericardial effusion. No previous study for comparison. Procedure: A two-dimensional transthoracic echocardiogram with color flow and Doppler was performed. The study quality was technically difficult. A contrast injection of Definity was performed to improve assessment of LV function. The patient was imaged in the supine position. The patient was in normal sinus rhythm during the exam. Left Ventricle: The left ventricle is grossly normal size. The ejection fraction is estimated to be 60-65%. Right Ventricle: The right ventricle grossly appears normal in size with probable normal systolic function. Atria: The left atrium grossly appears normal in size. The right atrium grossly appears normal in size. Mitral Valve: The mitral valve is normal in structure and function. There is trace mitral regurgitation. Aortic Valve: The aortic valve is not well visualized. No aortic regurgitation is present. Tricuspid Valve: The tricuspid valve is not well visualized, but is grossly normal. There is trace tricuspid regurgitation. The right ventricular systolic pressure is estimated at 23 mmHg assuming a right atrial pressure of 3 mm Hg. Pulmonic Valve: The pulmonic valve is not well visualized. Great Vessels: The aortic root is normal size. The ascending aorta is normal in size. The IVC is of normal diameter and collapses greater than 50% with a sniff. This suggests a low right atrial pressure of 3 mm Hg. Pericardium/ Pleura There is no pericardial effusion. There is an anterior echo-free space consistent with a fat pad. There is no pleural effusion. MMode/2D Measurements & Calculations LVOT diam: 2.3 cm asc Aorta Diam: 3.0 cm Doppler Measurements & Calculations Ao V2 max MV E max rg MV E/A: 1.4 TR max rg: 225.9 cm/sec : 112.6 cm/sec : 99.7 cm/sec TR max P.4 mmHg Ao max P.1 mmHgMV A max rg Ao mean PG : 71.3 cm/sec LVOT Max Rg : 103.0 cm/sec JOHN(I,D): 4.1 cm sev ratio: 1.0 MV dec time Ao V2 mean LV V1 max PG JOHN indexed to BSA : 0.12 sec : 94.3 cm/sec (cm^2/m^2): 1.8 Ao V2 VTI: 24.1 cmLV V1 VTI JOHN(V,D): 3.7 cm2 : 24.9 cm Reading Physician:05:20 PM
--- NOTE | 2016-12-12 17:55 | NUR ---
Transfer Pt transferred from CCU at 1510. Stable and w/o complaints, at bedside. Oriented to room and plan of care discussed. Pt denies any diarrhea. Mild PATTEN. CMS intact to LLE. VSS. [facility] bed. Will continue to monitor.
--- NOTE | 2016-12-12 17:58 | NUR ---
PT Pt provided boot to left foot by physical therapy. Pt c/o 03/24 pain. Straps loosened and tyelnol given and pt reports almost complete relief of pain. CMS intact. Will monitor.
[2016-12-12] MEDS: Lactated Ringer's 1,000 ML IV SCH (22:31)
[2016-12-13 03:19] VITALS: BP 122/65; PULSE 71; RESP 18; O2SAT 97
[2016-12-13 03:21] LABS: BASOPHILS % (AUTO) 0.3 % (0-3); EOSINOPHILS % (AUTO) 5.5 % (0-5); Mean Corpuscular Hemoglobin 28.8 pg (27.0-35.0); Mean Corpuscular Volume 88.2 fL (81-100); NEUTROPHILS % (AUTO) 63.8 % (40-74); Platelet Count 303 bil/L (150-400)
--- NOTE | 2016-12-13 03:28 | NUR ---
BLOOD SUGARS/PAIN/FRACTURES BS's 265, 5 units reg. insulin, 60 units Lantus given. Pt c/o severe headache, requested something stronger than Tylenol, however pt took Tylenol and feel asleep with no complaints after. Ortho evaluated pt's left fractured ankle, weightbearing as tolerated, follow-up outpatient in 2 weeks. PT to adjust fracture boot in AM. VSS, A&Ox3, no other issues noted at this time. Addendum: 12/13/16 at 0538 by MEHRDAD ARGUETA RN Pt snacked on foods brought in by family, BS's 245 @ 1991.
--- NOTE | 2016-12-13 05:23 | CONS ---
[address] [address] CONSULTATION REPORT PATIENT: CLARISSA HERNANDEZ : 1965 MR#: [id number] ADMIT: 12/11/2016 JOB ID: [id number] DATE OF SERVICE: 12/12/2016 ORTHOPEDIC CONSULTATION: CPT CODE IN HOUSE: [id number] CHIEF COMPLAINT: This is a 51-year-old female I was asked to see in orthopedic consultation for a left ankle sprain. The patient has evidently had diarrhea and had dehydration, and was admitted to the hospital. The patient is an insulin-dependent diabetic. The patient fell because she was unable to get up because of weakness. This patient was admitted for dehydration. ALLERGIES: Include: 1. METFORMIN. 2. MORPHINE. 3. SULFA. MEDICATIONS: Vitamin D3, citalopram, gabapentin, levothyroxine, lisinopril, lithium carbide, melatonin, meloxicam, mirtazapine, multiple vitamin, omeprazole, potassium chloride, prazosin, rosuvastatin and trazodone. PAST MEDICAL HISTORY: Positive for morbid obesity, type 2 diabetes, COPD, essential hypertension, gastroesophageal reflux, chronic low back pain and fibromyalgia. PAST SURGICAL HISTORY: Pertinent for cholecystectomy. FAMILY HISTORY: Positive for type 2 diabetes. SOCIAL HISTORY: The patient used to drink heavily in the , but quit 20 years ago. She quit smoking in 2012. REVIEW OF SYSTEMS: Pertinent mainly for left ankle pain and the fact that she did have dehydration but she is markedly improved with hydration. PHYSICAL EXAMINATION: A 162 cm female, 139 kg, BMI 52.7. The patient appears to be alert and oriented. Left ankle: She has 1 to 2+ swelling over the medial and lateral malleoli. Pain to palpation over the deltoid ligament medially and lateral ligament complex bilaterally. Appears to have intact motor and sensory testing. No abrasions noted. LABORATORY TESTING: White count today 12,900, hemoglobin 11.3, hematocrit 34.4. Sodium 138, potassium 4.1, chloride 105, CO2 of 23, BUN 13, creatinine 0.91, calcium 8.6. Lactic acid this morning was 2. Urinalysis, pH of 5.5, 0-5 white cells, no bacteria. The patient underwent x-rays showing she had some small chip avulsions over the medial and lateral malleoli which may be of indeterminate age. There was also a slight tilt on the talus. I requested an MRI scan. The MRI scan was performed and reviewed. She has prominent dorsal midfoot and hindfoot soft tissue swelling with fluid around the anterior tendons and some associated tenosynovitis. She also has a sprain of the anterior talofibular ligament, with distal posterior tibialis tendinopathy and tenosynovitis, and low-grade peroneal tenosynovitis. She had a medial band of plantar fasciitis. No acute fractures were noted. IMPRESSION: Left ankle sprain and tendinitis. PLAN: The patient was placed in a short-leg fracture boot. She may be mobilized with physical therapy out of bed and partial weightbearing in the boot or weightbearing as tolerated with a walker. Do not anticipate any surgical intervention at this time. The patient has had prior ankle sprains in the past and needs to be careful with ambulation so as not to re-injure the ankle. There does not appear to be any marrow edema on the MRI scan. The patient should wear the walking boot. She may weightbear as tolerated with physical therapy. At this time I am not contemplating any surgical intervention. The patient may be followed as an outpatient over the next three weeks or so to see how she does. We will sign off for now. If you have any further questions, please do not hesitate to contact us.
[2016-12-13 05:49] VITALS: PULSE 98
[2016-12-13 08:02] VITALS: BP 126/72; PULSE 92; RESP 16; O2SAT 98
[2016-12-13] MEDS: Insulin LISPRO 300 Unit/3 mL Inj SUBQ SCH ×4 (08:22→12:44)
[2016-12-13] MEDS: Pantoprazole 40 mg ER24 Tablet PO SCH (08:22)
[2016-12-13] MEDS: Insulin GLARgine 100 Unit/mL Syringe SUBQ SCH (08:24)
[2016-12-13] MEDS: Heparin 5,000 Unit/mL Inj SUBQ SCH (08:29)
[2016-12-13 08:32] VITALS: PULSE 89
[2016-12-13] MEDS: 0.9% Sodium Chloride 1,000 ML IV SCH (08:50)
[2016-12-13 12:57] VITALS: BP 118/83; PULSE 94; RESP 16; O2SAT 96
--- NOTE | 2016-12-13 14:18 | PCM.PNMED ---
Subjective Date of Service Dec 13, 2016 Subjective Gurmeet Armendariz is a 51 year old obese woman who presented for hypotension secondary to volume depletion. Overnight: No acute events. Today. The patient states she is feeling back to her baseline and her ankle is her only concern. The remainder of ROS is negative except as noted above. Exam Vital Signs Vital Sign - Last Date Time Temp Pulse Resp B/P Pulse Ox O2 Delivery O2 Flow Rate FiO2 12/13/16 12:57 36.6 94 16 118/83 96 Room Air 12/11/16 08:34 2 Intake and Output 12/12/16 12/12/16 12/13/16 Cumulative From/Thru 15:00 23:00 07:00 12/11/16 07:10 - 12/13/16 05:59 Intake Total 1080 ml 600 ml 00895 ml Output Total 900 ml 1200 ml 6600 ml Balance 180 ml -600 ml 6515 ml Intake Oral 1080 ml 600 ml 3040 ml IV Total 0 ml 71312 ml Output Urine Total 900 ml 1200 ml 6600 ml # Bowel Movements 1 Exam Oriented 3. No distress. Fluent speech. Normal affect. Morbidly obese. Normal skull. Normal nose and ears. Anicteric sclera, symmetric pupils Oropharynx is unremarkable, no facial droop. Neck is supple, normal thyroid. No adenopathy. Lungs are clear, normal effort rate. Heart is regular without murmur gallop or rub. Abdomen soft, nondistended or tender. Extremities are free of pedal edema. Left ankle is somewhat swollen and tender. In a fracture boot. Good radial and pedal pulses. Skin is free of rash, lesions. No petechiae or ecchymosis. Joints are grossly normal. Cranial nerves are grossly normal. Motor strength is normal in all extremities. Normal muscular tone. IVs and Medications Medications Reviewed: Medications were reviewed in detail Lab and Diagnostics Result Diagram: 12/13/1630912/13/16 031 X-Rays, CTs and MRIs X-RAY LEFT ANKLE, MINIMUM THREE VIEWS IMPRESSION: Multiple bony fragments adjacent to the tip of the medial and lateral malleolus suspicious for avulsion fracture fragments and there is asymmetry of the ankle mortise. If indicated MRI or CT could be performed for further assessment. Dictated by: Terry FLORES Interpreted: Renee Mcclellan MD on 12/11/2016 at 8:58 MRI ANKLE LEFT WITHOUT CONTRAST IMPRESSION: Prominent dorsal midfoot and hindfoot soft tissue swelling, with fluid surrounding the anterior tendons raising the possibility of strain and/or tenosynovitis. Recommend clinical correlation. Possible sprain of the anterior talofibular ligament. Please correlate clinically as this is technically age-indeterminate Distal posterior tibialis tendinopathy, and tenosynovitis. Low grade peroneal tenosynovitis. Medial band plantar fasciitis. Mild distal patellar tendinopathy, probably chronic. 5 mm chronic appearing ossicle adjacent to the medial malleolar tip possibly loose body. Recommend clinical correlation. A previously radiographically visualized small cortical fragment adjacent to the tip of the lateral malleolus is not well-seen on the current examination. No definite marrow edema seen in the tip of the lateral malleolus. Dictated by: Florencio Nolan M.D. on 12/12/2016 at 13:20 Assessment & Plan Gurmeet Armendariz is a 51 year old obese woman who presented for hypotension secondary to volume depletion. Hypovolemic shock, improves. This patient suffers from hypovolemia secondary to diarrhea and hyperglycemia. Resolved. Diarrhea, POA and stable. Stool PCR negative. Resolved. Left ankle sprain, acute -Consulted Dr. Morales of orthopedics. Recommended MRI and fracture boot. Fracture ruled out. -Physical therapy daily. Recommends discharge to SNF for PT for mobility training. Diabetes mellitus 2, uncontrolled. POA. -This patient has no evidence of DKA although there is no issue with her illness as well as medication noncompliance due to financial constraints. -Switch Lantus to HPN 70/30 with correctional lispro. Start at 70 units NPH 70/ 30 BID as patient is using 60 units Lantus BID with still poor control. Will likely need increase. -Diabetic education. Hypokalemia, POA. -We will replete and follow. Essential hypertension, POA. -We will hold home medications until her blood pressure stabilizes Chronic obstructive pulmonary disease, POA and stable. -Usual medications. Fibromyalgia and chronic lower back pain, POA and stable. -Follow clinically. Rule out sepsis, POA. -The patient has no clear source of infection but was given empiric antibiotics. -Blood cultures, 2 are pending and will be followed. -We will also add lactic acid and trend as well as a pro-calcitonin. Schizophrenia, POA and stable. -Follow clinically usual medications. Full resuscitation. Dispo: Anticipate patient can be discharged tomorrow when SNF placement can be secured. GI Prophylaxis: Proton Pump Inhibitor Resuscitation Status: CPR: Attempt Resuscitation Time spent 25 min Attending Statement Pt seen on rounds, and agree with plan. Pt subsequently requested to be discharged today. Adeline Kaufman DO Dec 13, 2016 13:49 Ronny Sifuentes MD Dec 14, 2016 07:22
[2016-12-13] MEDS ORDERED: NPH,100V11 SUBQ (14:57)
[2016-12-13] MEDS ORDERED: INS7030 SUBQ (14:58)
--- NOTE | 2016-12-13 15:07 | PCM.DIMED ---
Discharge Instructions Date of Service Dec 13, 2016 Dates of Hospitalization Dec 11, 2016 at 10:04 Discharge Diagnosis Discharge Diagnosis Hypovolemic shock, improves. This patient suffers from hypovolemia secondary to diarrhea and hyperglycemia. Resolved. Diarrhea, POA and stable. Stool PCR negative. Resolved. Left ankle sprain, acute Diabetes mellitus 2, uncontrolled. POA. Hypokalemia, POA. Essential hypertension, POA. Chronic obstructive pulmonary disease, POA and stable. Fibromyalgia and chronic lower back pain, POA and stable. Rule out sepsis, POA. Schizophrenia, POA and stable. Medication Instructions Additional med instructions Your blood pressure is normal now. Your Lisinopril has been stopped for now. Please measure your blood pressure at home and follow up with your primary care doctor to see if/when your blood pressure medication should be restarted. Your potassium has been stopped for now. Please have your primary care doctor follow up and decide if you need this restarted. Your insulin has been changed. In the morning you should take 70 units of NPH/ Regular insulin, labeled 70/30 with breakfast. In the evening you should take NPH alone at 70 units. Your doctor may need to adjust these further. Diet Discharge Diet: Diabetic Activity Discharge Activity: Limited until seen by PCP Call your provider Call your provider for: Chest pain, Weakness (unilateral) Patient Instructions Patient Instructions Please follow up with your primary care doctor in one week. This is very important as your medications may need to be adjusted. Please check your blood sugar several times a day if you can. Please follow up with orthopedics in about 3 weeks. Follow-up plan Home health physical therapy for ambulation and education to use a new device, a walker. Home health RN for medication management with a new insulin regiment. Follow-up Provider: Jackeline Rayo Follow-up with PCP in: 1 week Provider: Ludwig Morales MD Follow-up in: 3 weeks Adeline Kaufman DO Dec 13, 2016 15:07
[2016-12-13] MEDS ORDERED: WALK1EAC55 MC (15:11)
--- NOTE | 2016-12-13 16:26 | NUR ---
Discharge Patient states ankle is feeling better. Ambulating independently with FWW in room. Was able to go up and down stairs with PT. VSS. Denies pain/discomfort. Follow up instructions and diabetes information printed and reviewed verbally with patient including new insulin regime instructions. Patient left unit via wc with all personal belongings accompanied by SO and discharged home via personal vehicle.
[2016-12-13] MEDS ORDERED: Insulin Human NPH-Reg 70-30 100 Unit/mL 3 mL Pen SUBQ SCH (16:30)
--- NOTE | 2016-12-13 16:42 | NUR ---
Social Work Note: Discharge Data& Assessment: EMR reviewed. Per pt is medically ready to discharge home via POV. PT cleared pt go home with home health services and FWW. Per orders, ANTIONE presented Home Health and DME company list to pt and pt family for preferences. Pt did not have a preference for home health agencies and agreed to refer to the rotating calender. Referral provided to Cassia at [facility] who confirmed that they would not be able to open services with pt until 12/18/2016, pt notified and agreeable to this. Pt preferred to go with [facility] for her walker as she knows they contract with [facility]. ANTIONE faxed referral to [facility] and called and confirmed they received the prescription and accepted intake, walker should be delivered to pt home this weekend. All updated and agreeable to plan. No other discharge needs identified. Pt denies any other needs. Plan: Per pt is medically ready to discharge home via POV with [facility] PT and RN and a FWW delivered to her home by [facility]. All updated and agreeable to plan. No other discharge needs identified. Pt denies any other needs. Indira Uribe, SATURATION EQUIPMENT OPERATOR
--- NOTE | 2016-12-13 17:27 | PCM.DC.MED ---
Discharge Summary Date of Service Dec 13, 2016 Dates of Hospitalization Date of Hospital Admission Dec 11, 2016 at 10:04 Date of Discharge: Dec 13, 2016 Providers: Admitting Physician: Jules Reina MD Primary Care Physician: Jackeline Rayo Attending Physician: Jules Reina MD Diagnosis at Time of Discharge Diagnosis at Time of Discharge Hypovolemic shock, improves. This patient suffers from hypovolemia secondary to diarrhea and hyperglycemia. Resolved. Diarrhea, POA and stable. Stool PCR negative. Resolved. Left ankle sprain, acute Diabetes mellitus 2, uncontrolled. POA. Hypokalemia, POA. Essential hypertension, POA. Chronic obstructive pulmonary disease, POA and stable. Fibromyalgia and chronic lower back pain, POA and stable. Rule out sepsis, POA. Schizophrenia, POA and stable. Consultations Critical Care Orthopedics Procedures XRay, CTs & MRIs X-RAY LEFT ANKLE, MINIMUM THREE VIEWS IMPRESSION: Multiple bony fragments adjacent to the tip of the medial and lateral malleolus suspicious for avulsion fracture fragments and there is asymmetry of the ankle mortise. If indicated MRI or CT could be performed for further assessment. Dictated by: Terry Dominguez [facility] Interpreted: Renee Mcclellan MD on 12/11/2016 at 8:58 MRI ANKLE LEFT WITHOUT CONTRAST IMPRESSION: Prominent dorsal midfoot and hindfoot soft tissue swelling, with fluid surrounding the anterior tendons raising the possibility of strain and/or tenosynovitis. Recommend clinical correlation. Possible sprain of the anterior talofibular ligament. Please correlate clinically as this is technically age-indeterminate Distal posterior tibialis tendinopathy, and tenosynovitis. Low grade peroneal tenosynovitis. Medial band plantar fasciitis. Mild distal patellar tendinopathy, probably chronic. 5 mm chronic appearing ossicle adjacent to the medial malleolar tip possibly loose body. Recommend clinical correlation. A previously radiographically visualized small cortical fragment adjacent to the tip of the lateral malleolus is not well-seen on the current examination. No definite marrow edema seen in the tip of the lateral malleolus. Dictated by: Florencio Nolan M.D. on 12/12/2016 at 13:[address] Miguel's H and P: "This is a pleasant 51-year-old female who lives in [place] with her . She has a history of obesity and diabetes mellitus 2. She has been ill with diarrhea for about 2 weeks. She has had minimal nausea but some anorexia. The diarrhea has been intermittent low volume and free of blood or mucus. She last several days has had hyperglycemia. They have had great difficulty with fine insulin and strips because of insurance and financial problems. She does not take insulin on a regular basis. Her glucometers bed measuring high for the past several days sometimes over 600 range. She had become progressively weaker. Today she fell and was unable to get up because of weakness. The [facility] was called and found her to have a blood pressure that was not palpable but she was able to speak. Peripheral IV was placed and she was given fluids. The patient was then transported to the emergency department. There she received multiple fluid boluses and ultimately had a persistent hypotension. A right internal jugular central line was placed. The patient had a benign electrode cardiogram. She was treated empirically with antibiotics for possible sepsis and started on norepinephrine for vasopressor. The patient denies recent fevers or chills. No nausea. She denies any rhinorrhea or cough or sore throat. No myalgias or arthralgias above and beyond her baseline symptoms. She denies any burning with urination or hematuria but does have polyuria. She also denies any abdominal pain. She did injure her left ankle former falls and this was evaluated in the emergency department. She had some tenderness but minimal swelling. Radiograph is equivocal for possible avulsion of the distal fibula and tibia. She was placed in her splint. She denies other injuries or focal pain. She does have chronic lower back pain and fibromyalgia." Hospital Course Gurmeet Armendariz is a 51 year old obese woman who presented for hypotension secondary to volume depletion. Hypovolemic shock. This patient suffers from hypovolemia secondary to diarrhea and hyperglycemia. Resolved. Diarrhea, POA and stable. Stool PCR negative. Resolved. Left ankle sprain, acute -Consulted Dr. Morales of orthopedics. Recommended MRI and fracture boot. Fracture ruled out. -Physical therapy with home health. Diabetes mellitus 2, uncontrolled. POA. -This patient has no evidence of DKA although there is no issue with her illness as well as medication noncompliance due to financial constraints. -Diabetic education. -Due to financial constrains and difficulty in management will change insulin regiment to the following: NPH/Regular 70/30 70 units with breakfast NPH 70 units at bedtime May need to be increased but this simplified regiment should control her blood sugar and be affordable for the patient. Hypokalemia, POA. Resolved -Held outpatient potassium for now, will likely need to be restarted outpatient. Essential hypertension, POA. -Held home medications as patient is normotensive. Chronic obstructive pulmonary disease, POA and stable. -Usual medications. Fibromyalgia and chronic lower back pain, POA and stable. -Follow clinically. Rule out sepsis, POA. -The patient has no clear source of infection but was given empiric antibiotics. -Blood cultures, 2 are pending and will be followed. Schizophrenia, POA and stable. -home medications. Exam Vital Signs (Last) Date Time Temp Pulse Resp B/P Pulse Ox O2 Delivery O2 Flow Rate FiO2 12/13/16 12:57 36.6 94 16 118/83 96 Room Air 12/11/16 08:34 2 Exam Oriented 3. No distress. Fluent speech. Normal affect. Morbidly obese. Normal skull. Normal nose and ears. Anicteric sclera, symmetric pupils Oropharynx is unremarkable, no facial droop. Neck is supple, normal thyroid. No adenopathy. Lungs are clear, normal effort rate. Heart is regular without murmur gallop or rub. Abdomen soft, nondistended or tender. Extremities are free of pedal edema. Left ankle is somewhat swollen and tender. In a fracture boot. Good radial and pedal pulses. Skin is free of rash, lesions. No petechiae or ecchymosis. Joints are grossly normal. Cranial nerves are grossly normal. Motor strength is normal in all extremities. Normal muscular tone. Test 12/11/16 07:10 12/11/16 07:20 12/11/16 08:25 12/11/16 20:25 [place] Level 1.3mEq/L (0.5-1.5) Hemoglobin A1c 12.2% (4.8-5.6) Magnesium Level 2.1mg/dL (1.6-2.6) Troponin T < 0.010ug/L (0.0-0.011) Procalcitonin 0.18ng/mL (0.00-0.08) Thyroid Stimulating Hormone (TSH) 13.370uIU/mL (0.450-4.500) Free Thyroxine 1.06ng/dL (0.82-1.77) Ketones Negative (Negative) Urine Color Straw (YELLOW) Urine Appearance Clear (CLEAR,HAZY) Urine pH 5.5 (5.0-8.0) Urine Specific [place] 1.010 (1.003-1.035) Urine Protein Negativemg/dL (NEG,TRACE) Urine Glucose (UA) >1000mg/dL (NEGATIVE) Urine Ketones Negativemg/dL (NEGATIVE) Urine Occult Blood Moderate (NEGATIVE) Urine Nitrite Negative (NEGATIVE) Urine Bilirubin Negative (NEGATIVE) Urine Urobilinogen Normalmg/dL (NORMAL) Urine Leukocyte Esterase Negative (NEGATIVE) Urine RBC 0-2/hpf (0-2) Urine WBC 0-5/hpf (0-5) Urine Epithelial Cells None/hpf (NONE-MOD) Urine Crystals None seen (NONE SEEN) Urine Bacteria None/hpf (NONE-FEW) Urine Hyaline Casts None/lpf (NONE) Urine Granular Casts None seen (NONE SEEN) Urine Waxy Casts None seen (NONE SEEN) Urine Red Blood Cell Casts None seen (NONE SEEN) Urine White Blood Cell Casts None seen (NONE SEEN) Urine Mucus None seen (None Seen) Urine Trichomonas None seen (NONE SEEN) Urine Yeast None (NONE SEEN) Urinalysis Comment None Urine Culture Reflexed Not indicated Total Bilirubin 0.2mg/dL (0.0-1.2) Aspartate Amino Transf (AST/SGOT) 25U/L (0-50) Alanine Aminotransferase (ALT/SGPT) 24U/L (0-32) Alkaline Phosphatase 80U/L (25-150) Total Protein 6.1g/dL (6.4-8.4) Albumin 3.1g/dL (3.4-5.0) Test 12/12/16 03:11 12/12/16 08:00 12/13/16 03:10 Lactic Acid Level 2.0mmol/L (0.4-2.0) Cortisol 6.1ug/dL (.) Hold Red Top Tube Received (Received) Hold [place] Top Tube Received (Received) White Blood Count 10.3th/mm3 (3.8-10.1) Red Blood Count 3.82mil/mm3 (3.90-5.20) Hemoglobin 11.0g/dL (12.0-15.6) Hematocrit 33.7% (35.0-46.0) Mean Corpuscular Volume 88.2fL (81-100) Mean Corpuscular Hemoglobin 28.8pg (27.0-35.0) Mean Corpuscular Hemoglobin Concent 32.6% (32.0-37.0) Red Cell Distribution Width 12.7% (12.3-15.4) Platelet Count 303bil/L (150-400) Neutrophils (%) (Auto) 63.8% (40-74) Lymphocytes (%) (Auto) 22.1% (14-46) Monocytes (%) (Auto) 8.0% (4-12) Eosinophils (%) (Auto) 5.5% (0-5) Basophils (%) (Auto) 0.3% (0-3) Sodium Level 135mEq/L (134-144) Potassium Level 4.1mEq/L (3.5-5.2) Chloride Level 100mEq/L (97-108) Carbon Dioxide Level 23mmol/L (18-29) Blood Urea Nitrogen 14mg/dL (6-24) Creatinine 0.78mg/dL (0.57-1.00) Estimat Glomerular Filtration Rate 112mL/min (>59) Glucose Level 245mg/dL (60-99) Calcium Level 9.3mg/dL (8.5-10.1) Discharge Medications Discharge Medications Cholecalciferol (Vitamin D3) (Vitamin D3) 1,000 Unit Tab.chew 1,000 UNIT PO DAILY (Reported) Citalopram (Citalopram) 20 Mg Tablet 60 MG PO DAILY (Reported) Gabapentin (Gabapentin) 800 Mg Tablet 800 MG PO TID (Reported) Insulin Human Isophan/Regular (HUMulin 70/30 U100 Insulin Vial) 100 Unit/Ml Ml 70 UNIT SUBQ MORNING Prescribed by: CARLOS KAUFMAN DO Levothyroxine (Levothyroxine) 25 Mcg Tablet 25 MCG PO DAILY (Reported) [place] Carbonate ([place] Carbonate) 300 Mg Tablet.er 300 MG PO MORNING ( Reported) [place] Carbonate ([place] Carbonate) 300 Mg Tablet.er 600 MG PO Evening ( Reported) Melatonin (Melatonin) 5 Mg Tab.ir.er 5 MG PO HS (Reported) Meloxicam (Meloxicam) 15 Mg Tablet 15 MG PO DAILY (Reported) Mirtazapine (Mirtazapine) 15 Mg Tablet 15 MG PO HS (Reported) Multivitamin (Multivitamins) 1 Each Capsule 1 EACH PO DAILY (Reported) NPH, Human Insulin Isophane (HUMulin-N U100 Insulin Vial) 100 Unit/1 Ml Vial 70 UNIT SUBQ HS Prescribed by: CARLOS KAUFMAN DO Omeprazole (Omeprazole) 40 Mg Capsule.dr 40 MG PO BID (Reported) Prazosin (Prazosin) 1 Mg Capsule 1 MG PO HS (Reported) Rosuvastatin Calcium (Rosuvastatin Calcium) 20 Mg Tablet 20 MG PO DAILY ( Reported) Trazodone (Trazodone) 50 Mg Tablet 50 MG PO HS (Reported) When not taking Mirtazapine As needed Methocarbamol (Methocarbamol) 750 Mg Tablet 750 MG PO BID PRN PRN For Spasm ( Reported) Durable Medical Equipment Walker (Ultra-Light Rollator) 1 Each Each 1 EACH [facility] (DME) Prescribed by: CARLOS KAUFMAN DO Additional med instructions Your blood pressure is normal now. Your Lisinopril has been stopped for now. Please measure your blood pressure at home and follow up with your primary care doctor to see if/when your blood pressure medication should be restarted. Your potassium has been stopped for now. Please have your primary care doctor follow up and decide if you need this restarted. Your insulin has been changed. In the morning you should take 70 units of NPH/ Regular insulin, labeled 70/30 with breakfast. In the evening you should take NPH alone at 70 units. Your doctor may need to adjust these further. Followup Plan Follow-up plan Home health physical therapy for ambulation and education to use a new device, a walker. Home health RN for medication management with a new insulin regiment. Discharge Diet: Diabetic Discharge Activity: Limited until seen by PCP Patient Instructions Please follow up with your primary care doctor in one week. This is very important as your medications may need to be adjusted. Please check your blood sugar several times a day if you can. Please follow up with orthopedics in about 3 weeks. Follow-up Provider: Jackeline Rayo Follow-up with PCP in: 1 week Provider: Ludwig Morales MD Follow-up in: 3 weeks Time spent 35 minutes Attending Statement I interviewed and examined the patient on rounds today. I agree with the assessment and plan as stated above. Carlos Kaufman DO Dec 13, 2016 17:27 Ronny Sifuentes MD Dec 13, 2016 20:29
[2016-12-13] MEDS ORDERED: Insulin LISPRO 300 Unit/3 mL Inj SUBQ SCH (17:30)
[2016-12-13] MEDS ORDERED: Insulin Human NPH 100 Unit/mL Syringe SUBQ SCH (20:30)
--- NOTE | 2016-12-15 15:14 | NUR ---
Faxed facesheet to [facility] per DISTRICT OR DISTRICT OFFICE DIRECTOR. updated DISTRICT OR DISTRICT OFFICE DIRECTOR.
== END 2016-12-13 16:21 | disposition home health service (06) | DRG 641 ==
LOC: EDBD 07:05 → SED 07:05 → MERGE 10:04 → CCU 10:04 → PCC 12-12 08:46
PROVIDERS: ADMIT Hospitalist; ATTEND Hospitalist
PROC: 02HV33Z Insertion of Infusion Device into Superior Vena Cava, Percutaneous Approach (ICD-10-PCS; principal; 2016-12-11)
PROC: 4A033R1 Measurement of Arterial Saturation, Peripheral, Percutaneous Approach (ICD-10-PCS; 2016-12-11)
DX: E86.1 Hypovolemia (principal); Z68.43 Body mass index [BMI] 50.0-59.9, adult; E66.01 Morbid (severe) obesity due to excess calories; E11.65 Type 2 diabetes mellitus with hyperglycemia; J44.9 Chronic obstructive pulmonary disease, unspecified; I10 Essential (primary) hypertension; E78.00 Pure hypercholesterolemia, unspecified; K21.9 Gastro-esophageal reflux disease without esophagitis; G89.29 Other chronic pain; M79.7 Fibromyalgia; R29.6 Repeated falls; E03.9 Hypothyroidism, unspecified; F31.9 Bipolar disorder, unspecified; E87.6 Hypokalemia; F20.9 Schizophrenia, unspecified; K52.9 Noninfective gastroenteritis and colitis, unspecified; E86.0 Dehydration; S93.402A Sprain of unspecified ligament of left ankle, initial encounter; X58.XXXA Exposure to other specified factors, initial encounter; Z91.19 Patient's noncompliance with other medical treatment and regimen; Z87.891 Personal history of nicotine dependence; Y92.9 Unspecified place or not applicable